=== PATIENT | female | born 1965 | race Caucasian/White ===

== ENCOUNTER → 2016-10-22 | Outpatient (CLI) | payer BC ==
[~2016-10-22] MED LIST: MISCCAP80 PO; PRLSR20 PO
--- NOTE | 2016-10-22 12:55 | MAMMOGRAPHY REPORT ---
BILATERAL DIGITAL SCREENING MAMMOGRAM TOMOSYNTHESIS WITH CAD: 10/22/2016 CLINICAL HISTORY: Routine screening. Patient has no complaints. TECHNIQUE: Breast tomosynthesis in addition to standard 2D mammography was performed. Current study was also evaluated with a Computer Aided Detection (CAD) system. COMPARISON: Comparison is made to exams dated: 10/22/2015 mammogram, 10/17/2014 mammogram, 08/22/2013 ma mmogram, 08/18/2012 mammogram, 08/25/2011 mammogram, and 08/14/2011 mammogram - [facility]. BREAST COMPOSITION: There are scattered areas of fibroglandular density in both breasts. FINDINGS: No suspicious masses, calcifications, or areas of architectural distortion are noted in ei ther breast. There has been no significant interval change compared to prior exams. Benign-appearing mass with an associated biopsy marker clip in the right upper outer quadrant anteriorly is stable. Other bilateral benign-appearing calcifications are stable. IMPRESSION: ACR BI-RADS CATEGORY 2: BENIGN There is no mammographic evidence of malignancy. A 1 year screening mammogram is recommended. The pa tient will receive written notification of the results. Approximately 10% of breast cancers are not detected with mammography. A negative mammographic report should not delay biopsy if a clinically suggestive mass is present. Kavita Xiong M.D. /:10/22/2016 10:21:18 [employer] Director: Shadia DUARTE(Declan)(M)(BD), [facility] letter sent: Normal 1/2 BI-RADS Code: ACR BI-RADS Category 2: Benign
== END | disposition home or self-care (01) ==
LOC: C.MAMM 08:37
PROVIDERS: ATTEND Obstetrics & Gynecology
DX: Z12.31 Encounter for screening mammogram for malignant neoplasm of breast (principal)

== ENCOUNTER → 2016-12-08 | Outpatient (CLI) | payer BC ==
--- NOTE | 2016-12-08 14:41 | DIAGNOSTIC IMAGING REPORT ---
ABDOMEN FOR HERNIA CLINICAL HISTORY: R10.9 Abdominal [id number] pain TECHNIQUE: Survey ultrasound COMPARISON STUDY: None FINDINGS: No evidence for hernia by ultrasound criteria. Inguinal regions appear unremarkable IMPRESSION: No evidence for hernia by ultrasound criteria The above report was generated using voice recognition software. It may contain grammatical, syntax or spelling errors. Electronically signed by: Gurjit Garibay M.D. 12/08/2016 2:40 PM Dictated Date/Time: 12/08/2016 2:39 PM
--- NOTE | 2016-12-08 14:44 | DIAGNOSTIC IMAGING REPORT ---
PELVIC COMPLETE NON OB HISTORY: 51 years Female R10.9 diffuse Abdominal pain COMPARISON: CT abdomen and pelvis 10/02/2014 TECHNIQUE: Multiple real-time sonographic images of the deep pelvic structures were obtained transabdominal and transvaginally assessing grayscale appearance, color and spectral flow. FINDINGS: Transabdominal: Anteflexed uterus measures 7.4 x 3.3 x 4.3 cm. The adnexa are not well seen transabdominally. The endometrium measures 0.5 cm. Transvaginal: The left ovary measures 3.1 x 1.4 x 2.4 cm and appears to be within normal limits. Arterial inflow is documented within the left ovary. Follicles are noted within the left ovary. Follicle within the right ovary measures 1.7 x 1.6 x 1.4 cm. The right ovary measures 3.4 x 2.0 x 1.8 cm and demonstrates normal arterial inflow. Endometrium measures 0.9 cm. No myometrial mass lesion is identified. IMPRESSION: 1. Unremarkable sonographic appearance of the uterus and endometrium. 2. Normal-appearing follicles in the bilateral ovaries without evidence of ovarian torsion. The above report was generated using voice recognition software. It may contain grammatical, syntax or spelling errors. Electronically signed by: Claude Lu M.D. 12/08/2016 2:43 PM Dictated Date/Time: 12/08/2016 2:39 PM
--- NOTE | 2016-12-08 14:44 | DIAGNOSTIC IMAGING REPORT ---
(BLAD) RETROPERITONEAL LTD CLINICAL HISTORY: 51 years-old Female presenting with abdominal pain. TECHNIQUE: Grayscale and color Doppler ultrasound imaging of the bladder was obtained before and after micturition. COMPARISON: CT from 2015. FINDINGS: Mild bladder wall thickening measuring up to 5 mm. Bilateral ureteral jets noted consistent with no ureteral obstruction. Prevoid volume is ureters 398 mL, and post void volume measures 71 mL. This may be slightly greater than expected for a post void residual. No free fluid in the pelvis visualized. IMPRESSION: 1. Bladder wall thickening could represent cystitis. Correlate with urinalysis. 2. Post void residual greater than expected. 3. No obstruction. Electronically signed by: Erasmo Grover M.D. 12/08/2016 2:43 PM Dictated Date/Time: 12/08/2016 2:40 PM
== END | disposition home or self-care (01) ==
LOC: C.ULTR 13:55
PROVIDERS: ATTEND Internal Medicine
DX: R10.9 Unspecified abdominal pain (principal)

== ENCOUNTER → 2016-12-11 | Outpatient (CLI) | payer BC ==
--- NOTE | 2016-12-11 16:31 | DIAGNOSTIC IMAGING REPORT ---
DELAYED BONE SCAN OF THE THORACIC SPINE, LUMBAR SPINE, PELVIS AND HIPS CLINICAL HISTORY: Back and pelvic pain. Bilateral bone marrow edema on right hip MRI. COMPARISON STUDY: Lumbar spine MRI March 24, 2006 and right hip radiographs July 11, 2015. TECHNIQUE: 26.234 mCi of technetium 99m MDP was injected IV at 12:00 PM on December 11, 2016. 3 hours following injection, imaging of the thoracic spine, lumbar spine, pelvis and hips was performed. FINDINGS: Expected soft tissue and renal uptake is present. There is no abnormal uptake within the thoracic spine. There is moderate focal uptake within the right posterior aspect of the lumbar spine at the L4 level. There is no abnormal radiotracer uptake within the proximal femurs. There is mild uptake projecting over each acetabulum. IMPRESSION: 1. Moderate focal uptake within the right posterior aspect of the lumbar spine at approximately the L4 level which is likely degenerative and due to facet arthrosis. 2. No suspicious uptake within the thoracic spine, lumbar spine, pelvis or hips. 3. Minimal symmetric uptake within each acetabulum which is likely within normal limits or could reflect a mild degenerative process. Electronically signed by: Amilcar Cervantes M.D. 12/11/2016 4:29 PM Dictated Date/Time: 12/11/2016 3:45 PM
== END | disposition home or self-care (01) ==
LOC: C.NUCL 11:36
PROVIDERS: ATTEND Orthopaedic Surgery Orthopaedic Surgery of the Spine
DX: M85.9 Disorder of bone density and structure, unspecified (principal)

== ENCOUNTER → 2017-04-05 | Outpatient (CLI) | payer BC | END | disposition home or self-care (01) | LOC: C.PAPS 11:47 | PROVIDERS: ATTEND Obstetrics & Gynecology | DX: Z01.419 Encounter for gynecological examination (general) (routine) without abnormal findings (principal) ==

== ENCOUNTER → 2017-04-06 | Outpatient (CLI) | payer BC ==
[2017-04-06 17:51] LABS: URINE APPEARANCE CLEAR (CLEAR); URINE BILIRUBIN NEG (NEG); URINE COLOR DK YELLOW; URINE NITRITE NEG (NEG); URINE SPECIFIC GRAVITY 1.018 (1.000-1.030); UROBILINOGEN NEG (NEG)
[2017-04-06 17:53] LABS: MANUAL MICROSCOPIC REQUIRED? NO; REVIEW REQ? NO
== END | disposition home or self-care (01) ==
LOC: C.LABBFT 15:22
PROVIDERS: ATTEND Physician Assistant Medical
DX: N32.9 Bladder disorder, unspecified (principal)

== ENCOUNTER → 2017-05-25 | Outpatient (CLI) | payer BC | END | disposition home or self-care (01) | LOC: C.LAB1850 09:12 | PROVIDERS: ATTEND Internal Medicine Rheumatology | DX: N64.89 Other specified disorders of breast (principal); M46.1 Sacroiliitis, not elsewhere classified; M51.26 Other intervertebral disc displacement, lumbar region; M54.5 Low back pain; M13.0 Polyarthritis, unspecified ==

== ENCOUNTER → 2017-09-07 | Outpatient (CLI) | payer BC ==
--- NOTE | 2017-09-07 17:39 | DIAGNOSTIC IMAGING REPORT ---
C-SPINE ROUTINE 4 OR 5 VIEWS CLINICAL HISTORY: M54.2 Neck [id number] COMPARISON STUDY: No previous studies for comparison. FINDINGS: The prevertebral soft tissues are normal. No fractures or subluxations are visualized. There are moderate degenerative changes at the C5-6 and C6-7 levels. IMPRESSION: Moderate degenerative changes at the C5-6 and C6-7 levels. Electronically signed by: Kaushik Dove M.D. 09/07/2017 5:38 PM Dictated Date/Time: 09/07/2017 5:37 PM
--- NOTE | 2017-09-07 17:44 | DIAGNOSTIC IMAGING REPORT ---
R SCAPULA CLINICAL HISTORY: M54.10 right upper extremity radiculopathy. Right scapular pain. Right arm numbness. COMPARISON: None. DISCUSSION: No scapular fractures are visualized. IMPRESSION: No conventional radiographic evidence of scapular fracture. Electronically signed by: Kaushik Dove M.D. 09/07/2017 5:43 PM Dictated Date/Time: 09/07/2017 5:42 PM
== END | disposition home or self-care (01) ==
LOC: C.RAD 17:10
PROVIDERS: ATTEND Nurse Practitioner
DX: M54.10 Radiculopathy, site unspecified (principal); M54.2 Cervicalgia

== ENCOUNTER → 2017-12-09 | Outpatient (CLI) | payer BC ==
--- NOTE | 2017-12-09 14:23 | DIAGNOSTIC IMAGING REPORT ---
PA CHEST RADIOGRAPH AND UPRIGHT AND SUPINE AP RADIOGRAPHS OF THE ABDOMEN CLINICAL HISTORY: Abdominal pain. COMPARISON STUDY: CT of the abdomen and pelvis October 02, 2014. FINDINGS: Lung volumes are normal. No pneumothorax or pleural effusion is noted. There is no consolidation or evidence for pulmonary edema. Cardiac size is normal. Mediastinal contours are normal. There is no free air. The bowel gas pattern is normal. Pelvic calcifications reflect phleboliths. IMPRESSION: 1. No free air or evidence of bowel obstruction. 2. No acute cardiopulmonary findings. Electronically signed by: Amilcar Cervantes M.D. 12/09/2017 2:21 PM Dictated Date/Time: 12/09/2017 2:20 PM
== END | disposition home or self-care (01) ==
LOC: C.RAD1850 11:18
PROVIDERS: ATTEND Internal Medicine
DX: R10.9 Unspecified abdominal pain (principal)

== ENCOUNTER 2017-12-17 11:15 | Emergency (ER) | payer BC ==
[~2017-12-17] VITALS: Ht 160 cm; Wt 71.9 kg
[2017-12-17 11:23] VITALS: TEMP 36.8; Ht 160 cm; Wt 71.9 kg
[2017-12-17 12:09] LABS: BASO % 0.7 %; BASO ABS # 0.05 K/uL (0-0.2); EOS % 2.5 %; EOS ABS # 0.17 K/uL (0-0.5); HEMATOCRIT 42.4 % (37-47); HEMOGLOBIN 14.7 g/dL (12.0-16.0); IG# 0.01 K/uL (0.00-0.02); LYMPH % 32.4 %; LYMPH ABS # 2.18 K/uL (1.2-3.4); MEAN CELL VOLUME 88.1 fL (80-100); MEAN CORPUSCULAR HEMOGLOBIN 30.6 pg (25-34); MEAN CORPUSCULAR HGB CONC 34.7 g/dl (32-36); MEAN PLATELET VOLUME 9.6 fL (7.4-10.4); MONO ABS # 0.54 K/uL (0.11-0.59); NEUT % 56.3 %; NEUT ABS # 3.78 K/uL (1.4-6.5); PLATELET COUNT 249 K/uL (130-400); RED CELL DISTRIBUTION WIDTH CV 12.5 % (11.5-14.5); RED CELL DISTRIBUTION WIDTH SD 40.1 fL (36.4-46.3); WHITE BLOOD COUNT 6.73 K/uL (4.8-10.8)
[2017-12-17 12:29] LABS: ALBUMIN 3.8 gm/dl (3.4-5.0); CALCIUM 8.9 mg/dl (8.5-10.1); CREATININE 0.88 mg/dl (0.60-1.20); POTASSIUM 3.5 mmol/L (3.5-5.1); TOTAL PROTEIN 7.2 gm/dl (6.4-8.2)
--- NOTE | 2017-12-17 12:48 | DIAGNOSTIC IMAGING REPORT ---
ABDOMEN 2VIEW W/PA CHEST RTN CLINICAL HISTORY: Constipation/evaluate for obstruction COMPARISON STUDY: No previous studies for comparison. FINDINGS: The soft tissues, psoas shadows, renal outlines and intestinal gas pattern appear normal. There is no evidence for bowel obstruction. There is no evidence for free intraperitoneal air. No abnormal abdominal calcifications are seen. A frontal view of the chest was performed and is unremarkable. IMPRESSION: Normal study. The above report was generated using voice recognition software. It may contain grammatical, syntax or spelling errors. Electronically signed by: Gurjit Garibay M.D. 12/17/2017 12:46 PM Dictated Date/Time: 12/17/2017 12:45 PM
[2017-12-17 13:13] VITALS: BP 146/90; PULSE 56; O2SAT 100
--- NOTE | 2017-12-17 13:13 | EMERGENCY ROOM VISIT NOTE ---
History First contact with patient: 11:34 Chief Complaint: GI ASSESSMENT Stated Complaint: EARLY BOWEL OBSTRUCTION TESTING Nursing Triage Summary: patient reports constipation, last normal bowel movement 2 weeks ago, History of Present Illness The patient is a 52 year old female who presents to the Emergency Room with complaints of constipation with the last normal bowel movement 2 weeks ago. The patient states that she gets this way when she gets stressed and her just had surgery. The patient states that her PCP sent her to get an x- ray last which did not reveal any evidence of obstruction. The patient continues to just have mucus with small tiny stools. She denies any melena or hematochezia. The patient admits to nausea but no vomiting. The patient states that she took 2 Dulcolax last week and did have some diarrhea for 2 bowel movements but now the stools are back to mucousy and small stools again. The patient denies any fever. She denies any specific abdominal pain. The patient seen her PCP today and they try to get a CAT scan approved but they decided to send her to the emergency room for evaluation. Review of Systems 10 system review was performed and was negative unless stated otherwise history of present illness. Social History Smoking Status: Current Every Day Smoker Marital Status: Housing Status: lives with family Current/Historical Medications Scheduled Omeprazole (Prilosec), 20 MG PO QAM Probiotic Product (Probiotic), 1 CAP PO QPM Physical Exam Vital Signs Date Time Temp Pulse Resp B/P (MAP) Pulse Ox O2 Delivery O2 Flow Rate FiO2 12/17/18 11:23 36.8 63 16 125/87 97 Room Air Physical Exam GENERAL: 52-year-old white female appears in no acute distress. MENTAL Status: Alert and oriented 3. MOUTH: Mucosa is moist NECK: Supple, no lymphadenopathy noted. No carotid bruits noted. LUNGS: Clear auscultation without wheezes rales or rhonchi. CARDIAC: Regular rate and rhythm without murmur. Pulses is full and equal throughout. BACK: No CVA tenderness noted. ABDOMEN: Positive bowel sounds all 4 quadrants. Soft, mild tenderness to palpation over the entire upper quadrant. Lower quadrants are nontender to palpation without organomegaly or masses. EXTREMITIES: No cyanosis or edema noted. Medical Decision & Procedures ER Provider Diagnostic Interpretation: ABDOMEN 2VIEW W/PA CHEST RTN CLINICAL HISTORY: Constipation/evaluate for obstruction COMPARISON STUDY: No previous studies for comparison. FINDINGS: The soft tissues, psoas shadows, renal outlines and intestinal gas pattern appear normal. There is no evidence for bowel obstruction. There is no evidence for free intraperitoneal air. No abnormal abdominal calcifications are seen. A frontal view of the chest was performed and is unremarkable. IMPRESSION: Normal study. The above report was generated using voice recognition software. It may contain grammatical, syntax or spelling errors. Electronically signed by: Gurjit Garibay M.D. 12/17/2017 12:46 PM Laboratory Results 12/17/17 11:55 Red Blood Count 4.81, Mean Corpuscular Volume 88.1, Mean Corpuscular Hemoglobin 30.6, Mean Corpuscular Hemoglobin Concent 34.7, Mean Platelet Volume 9.6, Neutrophils (%) (Auto) 56.3, Lymphocytes (%) (Auto) 32.4, Monocytes (%) (Auto) 8.0, Eosinophils (%) (Auto) 2.5, Basophils (%) (Auto) 0.7, Neutrophils # (Auto) 3.78, Lymphocytes # (Auto) 2.18, Monocytes # (Auto) 0.54, Eosinophils # (Auto) 0.17, Basophils # (Auto) 0.05 12/17/17 11:55 Test 12/17/17 11:55 White Blood Count 6.73 K/uL (4.8-10.8) Red Blood Count 4.81 M/uL (4.2-5.4) Hemoglobin 14.7 g/dL (12.0-16.0) Hematocrit 42.4 % (37-47) Mean Corpuscular Volume 88.1 fL (80-100) Mean Corpuscular Hemoglobin 30.6 pg (25-34) Mean Corpuscular Hemoglobin Concent 34.7 g/dl (32-36) Platelet Count 249 K/uL (130-400) Mean Platelet Volume 9.6 fL (7.4-10.4) Neutrophils (%) (Auto) 56.3 % Lymphocytes (%) (Auto) 32.4 % Monocytes (%) (Auto) 8.0 % Eosinophils (%) (Auto) 2.5 % Basophils (%) (Auto) 0.7 % Neutrophils # (Auto) 3.78 K/uL (1.4-6.5) Lymphocytes # (Auto) 2.18 K/uL (1.2-3.4) Monocytes # (Auto) 0.54 K/uL (0.11-0.59) Eosinophils # (Auto) 0.17 K/uL (0-0.5) Basophils # (Auto) 0.05 K/uL (0-0.2) RDW Standard Deviation 40.1 fL (36.4-46.3) RDW Coefficient of Variation 12.5 % (11.5-14.5) Immature Granulocyte % (Auto) 0.1 % Immature Granulocyte # (Auto) 0.01 K/uL (0.00-0.02) Anion Gap 6.0 mmol/L (3-11) Est Creatinine Clear Calc Drug Dose 72.7 ml/min Estimated GFR () 88.8 Estimated GFR (Non- 76.6 BUN/Creatinine Ratio 11.3 (10-20) Calcium Level 8.9 mg/dl (8.5-10.1) Total Bilirubin 0.7 mg/dl (0.2-1) Direct Bilirubin 0.1 mg/dl (0-0.2) Aspartate Amino Transf (AST/SGOT) 13 U/L (15-37) Alanine Aminotransferase (ALT/SGPT) 24 U/L (12-78) Alkaline Phosphatase 54 U/L (45-117) Total Protein 7.2 gm/dl (6.4-8.2) Albumin 3.8 gm/dl (3.4-5.0) Lipase 96 U/L (73-393) ED Course The patient was evaluated. The patient's EMR medication list were reviewed. I reviewed patient's abdominal x-ray from last week which revealed no evidence of obstruction or ileus. No evidence of constipation. IV access was obtained. CBC differential, renal profile, LFTs and lipase levels were ordered. Labs are reviewed and were unremarkable. Repeat abdominal series x-ray was ordered and interpreted by the radiologist as above without any evidence of ileus or obstruction. No free air was noted.. More stool was noted in the colon than on the prior x-ray of last week. The patient was instructed to use MiraLAX daily if she does not have a normal bowel movement in 2 days she may also take Dulcolax. I also offered the patient Zofran for nausea but she declined. The patient was discharged home in stable condition. Medical Decision Differential diagnosis include small bowel obstruction, constipation, gastritis , colitis [place] Drug Monitoring Program Search Results: patient reviewed within database Medication Reconcilliation Current Medication List: was personally reviewed by me Blood Pressure Screening Patient's blood pressure: Normal blood pressure Impression Primary Impression: Constipation Departure Information Dispostion Home / Self-Care Condition GOOD Referrals No Doctor, Assigned (PCP) Forms HOME CARE DOCUMENTATION FORM, IMPORTANT VISIT INFORMATION Patient Instructions Constipation, My [facility] Additional Instructions Recommend high-fiber diet. Avoid dairy products. Recommend MiraLAX daily. If you do not have a normal bowel movement in 2-3 days recommend taking Dulcolax in addition. If symptoms persist or worsen, follow-up with your family doctor or return to ER. Problem Qualifiers Primary Impression: Constipation Constipation type: unspecified constipation type Qualified Codes: K59.00 - Constipation, unspecified
== END 2017-12-17 13:30 | disposition home or self-care (01) ==
LOC: C.EDB 11:17 → C.EDA 13:30
DX: K59.00 Constipation, unspecified (principal); R11.0 Nausea; Z79.899 Other long term (current) drug therapy; F17.200 Nicotine dependence, unspecified, uncomplicated

== ENCOUNTER → 2017-12-31 | Outpatient (CLI) | payer BC ==
[~2017-12-31] MED LIST changes: +OPTIRAY 320 IV PRN
--- NOTE | 2017-12-31 12:33 | DIAGNOSTIC IMAGING REPORT ---
ABD/PELVIS IV AND ORAL CONT CLINICAL HISTORY: 52 years-old Female presenting with LLQ Pain, recurrent DIVERTICULITIS. TECHNIQUE: Multidetector CT of the abdomen and pelvis was performed after the administration of oral and intravenous contrast. IV contrast: 93 mL of Optiray 320. A dose lowering technique was used consistent with the principles of ALARA (as low as reasonably achievable). COMPARISON: 10/02/2014. CT DOSE (mGy.cm): The estimated cumulative dose is 693.65 mGycm. FINDINGS: Marketing Team Lead topogram: Unremarkable. Lung bases: Lungs and pleural spaces clear. Normal heart size. No pericardial or pleural effusion. Liver: Normal morphology. No liver lesion. Patent hepatic vasculature. Biliary: No intrahepatic or extrahepatic biliary ductal dilatation. Normal gallbladder. Pancreas: Normal. Spleen: Normal. Adrenal glands: Normal. Kidneys and ureters: Normal. No hydronephrosis. Bladder: Circumferential bladder wall thickening. Pelvic organs: Uterus and ovaries normal. Bowel: Limited diverticula in the proximal sigmoid colon. No associated inflammatory change. Fluid noted in the colon suggesting a diarrheal state. No colonic wall thickening or pericolonic inflammatory change. No bowel obstruction. Peritoneal cavity: No free fluid or intraperitoneal gas. Lymph nodes: No enlarged lymph nodes in the abdomen or pelvis. Vasculature: Aorta and IVC patent and normal in caliber. Abdominal wall: Small fat-containing umbilical hernia. Musculoskeletal: Degenerative changes of the spine. IMPRESSION: 1. Fluid in the colon suggests a diarrheal state. No other evidence of colitis. 2. Limited diverticula in the proximal sigmoid colon. No evidence of diverticulitis. Electronically signed by: Erasmo Grover M.D. 12/31/2017 12:32 PM Dictated Date/Time: 12/31/2017 12:21 PM
== END | disposition home or self-care (01) ==
LOC: C.CTS 09:54
PROVIDERS: ATTEND Physician Assistant
DX: R10.32 Left lower quadrant pain (principal)

== ENCOUNTER → 2018-01-05 | Outpatient (CLI) | payer BC ==
[~2018-01-05] MED LIST changes: -OPTIRAY 320 IV PRN
== END | disposition home or self-care (01) ==
LOC: C.LABBFT 08:21
PROVIDERS: ATTEND Physician Assistant
DX: R10.32 Left lower quadrant pain (principal)